=== PATIENT | female | born 2000 | race Caucasian/White ===

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

== ENCOUNTER 2022-12-06 23:01 | Emergency (ER) | payer OTHER ==
[2022-12-06 23:48] VITALS: BP 120/70; PULSE 112; RESP 18; TEMP 99.5; BMI 27.4
[2022-12-07] MEDS ORDERED: DEXAMETHASONE SOD PHOSPHATE 10 MG/1 ML VIAL IM ONE (00:50)
[2022-12-07] MEDS ORDERED: DEXAMETHASONE SOD PHOSPHATE 10 MG/1 ML VIAL ONE (00:53)
== END 2022-12-07 01:27 | disposition home or self-care (01) ==
LOC: JER 23:01
PROC: 3E023GC Introduction of Other Therapeutic Substance into Muscle, Percutaneous Approach (ICD-10-PCS; principal; 2022-12-07)
DX: R21 Rash and other nonspecific skin eruption (principal); L29.9 Pruritus, unspecified; B86 Scabies
CPT/HCPCS: 99284-25; J1100

== ENCOUNTER 2023-04-02 02:29 | Emergency (ER) | payer OTHER ==
[2023-04-02 02:35] VITALS: TEMP 98.2; BMI 27.4
[2023-04-02 03:36] LABS: BASO % 0.5 % (0-2.0); EOS % 1.2 % (0-4.5); HEMATOCRIT 34.8 % (32.4-45.2); HEMOGLOBIN 11.5 GM/dL (10.7-15.3); LYMPH % 27.9 % (8-40); MCH 25.7 pg (25.7-33.7); MCHC 33.2 g/dl (32.0-36.0); MEAN CELL VOLUME 77.3 fl (80-96); MONO % 6.9 % (3.8-10.2); NEUT % 63.5 % (42.8-82.8); PLATELET COUNT 292 10^3/uL (134-434); RBC 4.49 M/mm3 (3.60-5.2); RDW 14.2 % (11.6-15.6); WHITE BLOOD COUNT 15.1 K/mm3 (4.0-10.0)
[2023-04-02 03:51] LABS: POTASSIUM 3.7 mmol/L (3.5-5.1)
[2023-04-02 03:53] LABS: CALCIUM 8.5 mg/dL (8.5-10.1)
[2023-04-02 03:54] LABS: ALBUMIN 3.9 g/dl (3.4-5.0); BLOOD UREA NITROGEN 13.7 mg/dL (7-18)
[2023-04-02 03:57] LABS: CREATININE 0.8 mg/dL (0.55-1.3)
[2023-04-02 03:58] LABS: TOT PROT 7.7 g/dl (6.4-8.2)
[2023-04-02 03:59] LABS: BILIRUBIN,TOTAL 0.3 mg/dL (0.2-1)
[2023-04-02 06:37] LABS: PH,URINE 6.5 (5.0-8.0); URINE APPEARANCE CLEAR; URINE BILIRUBIN NEGATIVE (NEGATIVE); URINE COLOR YELLOW; URINE GLUCOSE (UA) NEGATIVE (NEGATIVE); URINE KETONE NEGATIVE (NEGATIVE); URINE LEUK ESTERASE NEGATIVE (NEGATIVE); URINE NITRITE NEGATIVE (NEGATIVE); URINE PROTEIN NEGATIVE (NEGATIVE)
[2023-04-02 06:38] VITALS: BP 110/63; PULSE 87; RESP 19
== END 2023-04-02 06:45 | disposition home or self-care (01) ==
LOC: JER 02:29
DX: R45.1 Restlessness and agitation (principal); F41.9 Anxiety disorder, unspecified
CPT/HCPCS: 36415; 70450-TC; 80053; 80307; 81003; 83605; 84443; 84703; 85025; 87086; 93005; 93010; 99285-25